=== PATIENT | male | born 1995 | race Caucasian/White ===

== ENCOUNTER 2018-09-14 11:02 | Emergency (ER) | payer BC, MEDICAID ==
[~2018-09-14] VITALS: Ht 165.1 cm; Wt 71.3 kg
[~2018-09-14 11:02] MED LIST: IBUP-1542 PO
[2018-09-14 11:18] VITALS: BP 131/75; PULSE 106; RESP 24; Ht 165.1 cm; Wt 71.3 kg
[2018-09-14] MEDS ORDERED: NAPR-985 PO (14:31)
[2018-09-14] MEDS ORDERED: BENZ-6 PO (14:31)
[2018-09-14] MEDS ORDERED: PROM6.2515 PO (14:31)
--- NOTE | 2018-09-14 14:47 | ERD ---
ER Documentation Chief Complaint Chief Complaint cough, chest congestion, fever started 3 days HPI 23-year-old male presenting with cough and congestion for the last 3 days. Patient had a dry cough with some midline chest pain. Had tactile fevers and took NyQuil 6 hours prior to my evaluation. Denies medical problems. NKDA. Surgical history. Social history smokes 3 cigarettes a day. Drug use denies ROS All systems reviewed and are negative except as per history of present illness. Medications Home Meds Active Scripts Benzonatate* (Tessalon Perle*) 100 Mg Capsule, 100 MG PO Q8H PRN for COUGH, #30 CAP Prov:NICOLE VILLEDA PA-C 09/14/18 Promethazine Hcl* (Promethazine Hcl* Syrup) 6.25 Mg/5 Ml Syrup, 6.25 MG PO Q6H PRN for COUGH, #100 ML Prov:NICOLE VILLEDA PA-C 09/14/18 Naproxen* (Naprosyn*) 500 Mg Tablet, 500 MG PO BID PRN for PAIN AND/OR INFLAMMATION, #30 TAB Prov:NICOLE VILLEDA PA-C 09/14/18 Ibuprofen* (Motrin*) 600 Mg Tab, 600 MG PO Q6, #20 TAB Prov:CONSUELO SHER PA-C 02/25/15 Allergies Allergies: Coded Allergies: No Known Allergy (Unverified , 09/10/14) PMhx/Soc Medical and Surgical Hx: pt denies Medical Hx, pt denies Surgical Hx Hx Alcohol Use: Yes Hx Substance Use: No Hx Tobacco Use: No Smoking Status: Current some day smoker FmHx Family History: No diabetes, No coronary disease, No other Physical Exam Vitals Vital Signs Date Temp Pulse Resp B/P (MAP) Pulse Ox O2 O2 Flow FiO2 Time Delivery Rate 09/14/18 97.9 14:36 09/14/18 99.8 106 24 131/75 97 11:18 (93) Physical Exam GENERAL: The patient is well-appearing, well-nourished, in no acute distress HEENT: Atraumatic. Conjunctivae are pink. Pupils equal, round, and reactive to light. There is no scleral icterus. Tympanic membranes clear bilaterally. Oropharynx clear. NECK: C-spine is soft and supple. There is no meningismus. There is no cer vical lymphadenopathy. CHEST: Clear to auscultation bilaterally. There are no rales, wheezes or rhonchi. HEART: Regular rate and rhythm. No murmurs, clicks, rubs or gallops. Procedures/MDM DIAGNOSTIC IMAGING REPORT Patient: HILLARY VEGA : 1995 Age: 23 Sex: M MR #: [id number] DOS: 09/14/18 1135 Ordering MD: CRYSTAL VILLEDA PA-C Location: [facility] Room/Bed: PROCEDURE: XR Chest PA CLINICAL INDICATION: Cough TECHNIQUE: An PA radiograph of the chest was submitted. COMPARISON: None. FINDINGS: Cardiovascular: The cardiovascular silhouette appears unremarkable. Lung Bowen: The lung bowen appear clear with no nodule, alveolar infiltrate, or interstitial prominence evident. Pleural Spaces: There is no pneumothorax or pleural fluid accumulation evident. Osseous Structures: The osseous structures appear intact. Soft Tissues: The soft tissues appear unremarkable. IMPRESSION: Unremarkable PA chest. EKG: Rate/Rhythm: 80 bpm. normal Sinus Rhythm QRS, ST, T-waves: No changes consistent w/ acute ischemia Impression: No evidence of ischemia or arrhythmia ER course: I recommended patient have another EKG done but he declined. MDM: 23-year-old male presenting with chest pain. I have considered ACS versus PE versus endocarditis versus pneumonia. I have low suspicion for infectious etiology however patient is recommended to return if symptoms change or worsen. Patient does have complaints of cough so treat with supportive medications as he may does have a viral cough. Patient is told symptoms change or worsen to return to the ER immediately. All questions answered at discharge Departure Diagnosis: Primary Impression: Cough Condition: Stable Patient Instructions: Cough, Chronic, Uncertain Cause, (Adult) Referrals: [facility] YOU HAVE RECEIVED A MEDICAL SCREENING EXAM AND THE RESULTS INDICATE THAT YOU DO NOT HAVE A CONDITION THAT REQUIRES URGENT TREATMENT IN THE EMERGENCY DEPARTMENT. FURTHER EVALUATION AND TREATMENT OF YOUR CONDITION CAN WAIT UNTIL YOU ARE SEEN IN YOUR DOCTORS OFFICE WITHIN THE NEXT 1-2 DAYS. IT IS YOUR RESPONSIBILITY TO MAKE AN APPOINTMENT FOR FOLOW-UP CARE. IF YOU HAVE A PRIMARY DOCTOR --you should call your primary doctor and schedule an appointment IF YOU DO NOT HAVE A PRIMARY DOCTOR YOU CAN CALL OUR PHYSICIAN REFERRAL HOTLINE AT IF YOU CAN NOT AFFORD TO SEE A PHYSICIAN YOU CAN CHOSE FROM THE FOLLOWING [facility] [address] [facility] [address] [facility] [address] [facility] [address] [facility]. [facility] [phone] [id number] [facility]. [facility] [address] Additional Instructions: FOLLOW UP WITH YOUR PRIMARY CARE PHYSICIAN TOMORROW.Return to this facility if you are not improving as expected. NICOLE VILLEDA PA-C Sep 14, 2018 14:47
== END 2018-09-14 14:37 | disposition home or self-care (01) ==
LOC: FTE 11:02
DX: R05 Cough (principal); F17.210 Nicotine dependence, cigarettes, uncomplicated; R07.9 Chest pain, unspecified
CPT/HCPCS: 71045; 87400; 93005; Z7502